=== PATIENT | male | born 1990 | race Caucasian/White ===

== ENCOUNTER 2022-07-03 14:09 | Emergency (ER) | payer SELFPAY | END 2022-07-03 15:04 | LOC: VM.ED 14:09 | DX: N50.811 Right testicular pain (principal); Z88.0 Allergy status to penicillin | CPT/HCPCS: 99283; 99285 ==

== ENCOUNTER 2022-10-20 02:25 | Emergency (ER) | payer BC | END 2022-10-20 05:00 | disposition home or self-care (01) | LOC: VM.ED 02:25 | DX: S06.0XAA Concussion with loss of consciousness status unknown, initial encounter (principal); S00.03XA Contusion of scalp, initial encounter; S61.412A Laceration without foreign body of left hand, initial encounter; S61.411A Laceration without foreign body of right hand, initial encounter; S80.01XA Contusion of right knee, initial encounter; S80.02XA Contusion of left knee, initial encounter; Z88.0 Allergy status to penicillin; Y04.2XXA Assault by strike against or bumped into by another person, initial encounter | CPT/HCPCS: 70450; 99283; 99284 ==

== ENCOUNTER 2023-10-15 02:20 | Emergency (ER) | payer OTHER, BC ==
[2023-10-15] MEDS ORDERED: HYDROmorphone 1 MG/ML Syringe SUBCUT ONE (02:36)
[2023-10-15] MEDS ORDERED: Naloxone 0.4 MG/ML SDV IVPUSH PRN (02:36)
[2023-10-15] MEDS ORDERED: ceFAZolin 1 GM Vial IM ONE (02:50)
[2023-10-15] MEDS ORDERED: ceFAZolin 2 GM Vial IVPUSH ONE (02:57)
== END 2023-10-15 03:20 | disposition short-term general hospital (02) ==
LOC: VM.ED 02:20
DX: S68.610A Complete traumatic transphalangeal amputation of right index finger, initial encounter (principal); W23.1XXA Caught, crushed, jammed, or pinched between stationary objects, initial encounter
CPT/HCPCS: 73140-F6; 96372; 96374; 99284-25; J0690; J1170